=== PATIENT | female | born 1955 | race Caucasian/White ===

== ENCOUNTER → 2024-05-19 | Emergency (ER) | payer MEDICARE ==
[~2024-05-19] VITALS: Ht 170.2 cm; Wt 65.8 kg
[~2024-05-19] MED LIST: AMOX-427 PO; LIDOCAINE 1% INJ 50 ML MDV IJ ONE
[2024-05-19 12:57] VITALS: BP 136/68; TEMP 98.3; O2SAT 99
== END | disposition home or self-care (01) ==
LOC: ER 13:22
DX: S01.511A Laceration without foreign body of lip, initial encounter (principal); W22.8XXA Striking against or struck by other objects, initial encounter; Z79.899 Other long term (current) drug therapy; Z60.2 Problems related to living alone; Z88.2 Allergy status to sulfonamides; Y93.67 Activity, basketball; Y92.89 Other specified places as the place of occurrence of the external cause; Y99.8 Other external cause status
CPT/HCPCS: 12011; 99283; A6403; J3490